=== PATIENT | female | born 2005 | race Caucasian/White ===

== ENCOUNTER 2025-06-02 04:19 | Emergency (ER) | payer MEDICAID ==
[~2025-06-02] VITALS: Ht 157.5 cm; Wt 54.4 kg
[2025-06-02 04:27] VITALS: O2SAT 99
[2025-06-02] MEDS ORDERED: NAPR-1176 MT (05:19)
[2025-06-02] MEDS ORDERED: CEPH500C2 MT (05:19)
[2025-06-02 05:47] VITALS: BP 96/63; PULSE 80; RESP 18; TEMP 37.1; O2SAT 98
== END 2025-06-02 06:00 | disposition home or self-care (01) ==
LOC: ER 04:33
DX: H66.91 Otitis media, unspecified, right ear (principal)
CPT/HCPCS: 99283